=== PATIENT | female | born 1970 | race Caucasian/White ===

== ENCOUNTER 2019-04-22 04:41 | Day surgery (SDC) | payer BC, OTHER ==
[2019-04-15 17:32] VITALS: BMI 35.4
[2019-04-22] MEDS ORDERED: IBUPROFEN 400 MG TABLET (FP) PO PRN (10:46)
[2019-04-22] MEDS ORDERED: ACETAMINOPHEN 325 MG TABLET (FP) PO PRN (10:46)
--- NOTE | 2019-04-22 10:46 | HP ---
History & Physical Update - History History: No Change - Physical Physical: No Change - Assessment Assessment: No Change - Plan Plan: No Change (No change in HP)
--- NOTE | 2019-04-22 10:57 | OP ---
Operative Note - Note: Operative Date: 04/22/19 Pre-Operative Diagnosis: submucosal myoma. menorrhagia Operation: Hysteroscopic myomectomy. Suction DC Findings: endometrial polyps submucosal myoma Post-Operative Diagnosis: Same as Pre-op Surgeon: Mady Laguerre Anesthesia: General Estimated Blood Loss (mls): 30 Operative Report Dictated: Yes
[2019-04-22] MEDS ORDERED: MIDAZOLAM HCL 2 MG/2 ML SINGLE DOSE VIAL ONE (11:10)
--- NOTE | 2019-04-22 13:16 | OP ---
DATE OF OPERATION: 04/22/2019 PREOPERATIVE DIAGNOSIS: Submucosal myoma, menorrhagia. OPERATION: Hysteroscopic myomectomy, suction dilation and curettage. POSTOPERATIVE DIAGNOSIS: Endometrial polyps and submucosal myoma. SURGEON: Mady Laguerre MD ANESTHESIA: General. DESCRIPTION OF PROCEDURE: Patient was taken to the operating room, placed in dorsal lithotomy position, prepped and draped in the usual sterile fashion. Time-out was performed in accordance with hospital regulation. Speculum was placed in the vagina. Anterior lip of the cervix was grasped with single-tooth tenaculum. Cervix was then dilated to accommodate the operative hysteroscope. Visualization revealed numerous endometrial polyps. Cautery and cutting of the polyps was done to ensure polyp had been removed. Submucosal myoma was seen both anteriorly and posteriorly and also on the right lateral wall. Submucosal myoma was then shaved down followed by suction dilation and curettage. Specimen was submitted to Pathology. This procedure was repeated several times until the endometrial cavity was clean. Estimated blood loss less than 20 mL. All instruments were then removed. Patient tolerated procedure well, taken to recovery room in stable condition. MADY LAGUERRE M.D. [id number]
[2019-04-22 15:23] VITALS: BP 101/67; PULSE 69; TEMP 97.8
--- NOTE | 2019-04-23 16:16 | PATH ---
Surgical Pathology Report Patient Name: LINDA ELLIS [facility]. Rec. #: [id number] /Age/Gender: 1970 (Age: 48) / F Account: [id number] Location: [facility] Taken: 04/22/2019 Received: 04/22/2019 Reported: 04/23/2019 Physicians: Mady Laguerre M.D. Specimen(s) Received A: ENDOMETRIAL POLYP B: ENDOMETRIAL CURETTINGS Clinical History Uterine fibroids Final Diagnosis A. ENDOMETRIAL POLYP, BIOPSY: FRAGMENTS OF ENDOMETRIAL POLYP AND FIBROMUSCULAR TISSUE WITH EMBEDDED ENDOMETRIAL GLANDS. B. ENDOMETRIAL CURETTINGS, SUCTION DILATION AND CURETTAGE: FRAGMENTS OF ENDOMETRIAL POLYP, FIBROMUSCULAR TISSUE CONSISTENT WITH SUBMUCOSAL LEIOMYOMA ADMIXED WITH BLOOD AND SCANT BENIGN CERVICAL SQUAMOUS EPITHELIUM. Electronically Signed Linda Wilson M.D. Gross Description A. Received in formalin labeled "endometrial polyp," are 3 pink barron portions of soft tissue ranging from 0.5 x 0.3 x 0.2 cm to 1.8 x 0.3 x 0.2 cm. The specimens are submitted in toto in one cassette. B. Received in formalin labeled "endometrial curettings," is a 6.4 x 4.2 x 0.4 cm aggregate of barron red soft tissue fragments. The formalin is filtered and the specimen is entirely submitted in 5 cassettes. /04/22/2019 saudi/04/22/2019
== END 2019-04-22 15:15 | disposition home or self-care (01) ==
LOC: JASU-SURG 04:41
PROVIDERS: ATTEND Obstetrics & Gynecology
PROC: 0UDB7ZX Extraction of Endometrium, Via Natural or Artificial Opening, Diagnostic (ICD-10-PCS; principal; 2019-04-22 10:30)
PROC: 0UJD8ZZ Inspection of Uterus and Cervix, Via Natural or Artificial Opening Endoscopic (ICD-10-PCS; 2019-04-22 10:30)
DX: D25.0 Submucous leiomyoma of uterus (principal); N84.0 Polyp of corpus uteri
CPT/HCPCS: 36415; 82947; 84703; 86850; 86900; 86901; 86922; 88305-TC; 94760